=== PATIENT | male | born 1985 | race Caucasian/White ===

== ENCOUNTER 2017-08-22 12:19 | Emergency (ER) | payer SELFPAY ==
[~2017-08-22] VITALS: Ht 182.9 cm; Wt 95.3 kg
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
--- NOTE | 2017-08-22 12:35 | NUR ---
HAND CLOTH EXAMINER AT BEDSIDE FOR BLOOD DRAW.
--- NOTE | 2017-08-22 12:39 | NUR ---
URINE OBTAINED AND SENT TO LAB.
[2017-08-22 12:45] LABS: BASOPHILS # (AUTO) 0.1 /CMM (0.0-0.2); BASOPHILS % (AUTO) 0.8 % (0.0-2.0); EOSINOPHILS # (AUTO) 0.2 /CMM (0.0-0.7); HEMATOCRIT 36 % (39-51); HEMOGLOBIN 12.8 g/dL (13.5-17.5); LYMPHOCYTES # (AUTO) 2.5 /CMM (0.8-4.8); LYMPHOCYTES % (AUTO) 38.9 % (20.0-44.0); MEAN CORPUSCULAR HEMOGLOBIN 31 PG (26.0-33.0); MEAN CORPUSCULAR HGB CONC 35 g/dl (31.0-36.0); MEAN CORPUSCULAR VOLUME 88 fL (80-96); MONOCYTES # (AUTO) 0.5 /CMM (0.1-1.30); MONOCYTES % (AUTO) 7.7 % (2.0-12.0); NEUTROPHILS # (AUTO) 3.2 /CMM (1.8-8.9); NEUTROPHILS % (AUTO) 49.6 % (43.0-81.0); PLATELET COUNT (AUTO) 252 /CMM (150-450); RDW COEFFICIENT OF VARIATION 12.2 (11.5-15.0); RED BLOOD CELL COUNT(AUTO) 4.15 MIL/uL (4.5-6.0); WHITE BLOOD COUNT (AUTO) 6.5 K/uL (4.3-11.0)
[2017-08-22 12:50] LABS: CALCIUM, SERUM 8.6 mg/dL (8.5-10.1); CREATININE 0.7 mg/dL (0.6-1.3); POTASSIUM 3.7 mmol/L (3.5-5.1)
[2017-08-22 12:50] LABS: APPEARANCE,URINE Clear (CLEAR); BILIRUBIN,URINE Negative (NEGATIVE); BLOOD, URINE Negative Ery/uL (NEGATIVE); COLOR,URINE Yellow (YELLOW); KETONES,URINE Negative (NEGATIVE); LEUKOCYTE ESTERASE ,URINE Negative (NEGATIVE); NITRITE, URINE Negative (NEGATIVE); PROTEIN,URINE Negative (NEGATIVE); UGLUCOSE Negative (NEGATIVE); UROBILINOGEN,URINE 0.2 EU/dL (0.2)
[2017-08-22 12:56] LABS: ALBUMIN 3.7 g/dL (3.4-5.0); BILIRUBIN,DIRECT 0.1 mg/dL (0.0-0.2); BILIRUBIN,TOTAL 0.3 mg/dL (0.2-1.0); TOTAL PROTEIN, SERUM 7.1 g/dL (6.4-8.2)
--- NOTE | 2017-08-22 12:58 | NUR ---
PATIENT TAKEN TO CT VIA STRETCHER.
--- NOTE | 2017-08-22 13:10 | NUR ---
PATIENT RETURNED FROM CT IN STABLE CONDITION.
--- NOTE | 2017-08-22 17:17 | NUR ---
CALLED [facility] FOR PSYCH EVAL, ETA WITHIN THE HOUR
--- NOTE | 2017-08-22 17:45 | NUR ---
GROUNDWATER MONITORING TECHNICIAN PINKY AT BEDSIDE FOR EVAL. PATIENT IS INCOMPREHENSIVE. MD INFORMED. GROUNDWATER MONITORING TECHNICIAN TO FOLLOW UP AT LATER TIME.
[2017-08-22] MEDS ORDERED: OLANZAPINE 10 MG VIAL IM ONE ×2 (18:00→18:12)
--- NOTE | 2017-08-22 18:17 | NUR ---
PATIENT MEDICATED PER MD ORDERS.
--- NOTE | 2017-08-22 19:37 | NUR ---
REPORT GIVEN TO DARVIN MONTES FOR [facility].
--- NOTE | 2017-08-22 19:52 | NUR ---
ASSUMED CARE OF PT.
--- NOTE | 2017-08-22 22:56 | NUR ---
PT IS EASILY AROUSED, BUT GOES BACK TO SLEEP.
--- NOTE | 2017-08-22 22:56 | NUR ---
RESP EVEN AND UNLABORED. VSS. NAD NOTED.
--- NOTE | 2017-08-23 01:07 | NUR ---
PT APPEARS TO BE SLEEPING SOUNDLY. WILL CONTINUE TO MONITOR THE PT. NAD NOTED.
--- NOTE | 2017-08-23 04:11 | NUR ---
PT APPEARS TO BE SLEEPING SOUNDLY WITH NO S/S OF PAIN OR DISTRESS NOTED. PT IS ON THE MONITOR AND CONTINUOUS PULSE OX. VSS.
[2017-08-23 06:58] VITALS: BP 112/72
--- NOTE | 2017-08-23 06:59 | NUR ---
Patient given written and verbal discharge instructions. Patient verbalizes understanding of instructions. Patient is ambulatory with steady gait. Refuses offer of long-term placement. Patient given list of available shelters in surrounding area.
== END 2017-08-23 06:59 | disposition home or self-care (01) ==
LOC: ER 12:24
DX: F10.129 Alcohol abuse with intoxication, unspecified (principal); F15.10 Other stimulant abuse, uncomplicated; R51 Headache
CPT/HCPCS: 36415; 70450; 72125; 80048; 80076; 80305; 80329; 81001; 85025; 96372; 99285; A4606; G0480 ×2; J3490; Z7610; 81000-TC